=== PATIENT | female | born 2000 | race Caucasian/White ===

== ENCOUNTER 2025-05-29 15:20 | Emergency (ER) | payer MEDICAID ==
[~2025-05-29] VITALS: Ht 157.5 cm; Wt 56.0 kg
[2025-05-29 15:38] VITALS: TEMP 97.8
[2025-05-29 17:46] VITALS: BP 90/42; PULSE 64; RESP 16; O2SAT 100
--- NOTE | 2025-05-29 18:06 | Physician Documentation ---
History of Present Illness ~ Chief Complaint: Neck pain Stated Complaint: WEAKNESS AND DIZZINESS Time Seen by MD: 15:59 Mode of Arrival: POV, Ambulatory HPI Patient is seen today with complaints of chronic neck pain stating she has a Chiari malformations diagnosed by her primary care and states she is trying to get into see a neurologist. She states her primary care did put in a referral to see a neurologist. Patient also states that she has some vague chronic lower abdominal pain that is been present for over a month and she states she was told at one point she had an ectopic . Patient admits to morning sickness. She has no other concern or complaint at this time. Denies any fevers or chills or chest pain or vomiting or diarrhea. Medication Reconciliation Allergies: Coded Allergies: fentanyl (Verified Adverse Reaction, Intermediate, NUMBNESS, 05/29/25) Review of Systems Constitutional: Denies: chills, fever, weakness Eyes: Denies: pain, blurred vision ENT: Denies: ear pain, nose pain, throat pain, mouth pain Respiratory: Denies: cough, shortness of breath Cardiovascular: Denies: chest pain, palpitations Gastrointestinal: Denies: abdominal pain, nausea, vomiting Genitourinary: Denies: burning, dysuria Female Genitalia: Denies: vaginal discharge, pelvic pain Neurological: Denies: headache, dizziness Musculoskeletal: Denies: pain, swelling Integumentary: Denies: rash, lesions Allergic/Immunologic: Denies: hives, itching Hematologic/Lymphatic: Denies: no symptoms reported Psychiatric: Denies: depression, anxiety Physical Exam Vital Signs: Temperature: 97.8, Source: Temporal, Heart Rate: 64, Respiratory Rate: 16, BP: 90/42, Pulse Oximetry: 100, Weight: 56.000 Oxygen Flow Rate: 0 Physical Exam General: Awake and Alert, no acute distress. HEENT: Conjunctiva pink, Sclera clear, Mucus Membranes moist. Neck: Supple without masses and tenderness. Resp: Unlabored. Lungs clear to auscultation bilaterally. Heart: Regular Rate and rhythm, normal S1 and S2 without murmur, rub or gallop. Musculoskeletal: Patient has decreased range of motion of the cervical spine in all planes of motion. Patient is neurovascularly intact of the bilateral upper and lower extremities, motor function and strength intact distally. Abdomen: Abdomen is soft, nondistended, no masses, no guarding, no rebound tenderness, very minimal lower abdominal tenderness to palpation. Extremities: No cyanosis,clubbing or edema. Skin: Warm and Dry. Progress Results/Orders Results/Orders Completed Orders - CAMILO CIFUENTES Hcg Serum Qt (05/29/25 16:42) Vital Signs 05/29/25 05/29/25 05/29/25 15:38 16:47 17:46 Temp 97.8 Pulse 69 64 Resp 16 16 16 B/P (MAP) 99/28 90/42 (58) Pulse Ox 100 100 O2 Flow Rate 0 0 Laboratory Tests Test 05/29/25 17:00 HCG Beta Subunit < 1.0 Medical Decision Making Findings Patient is seen today with complaints of chronic neck pain stating she has a Chiari malformations diagnosed by her primary care and states she is trying to get into see a neurologist. She states her primary care did put in a referral to see a neurologist. Patient also states that she has some vague chronic lower abdominal pain that is been present for over a month and she states she was told at one point she had an ectopic . Patient admits to morning sickness. She has no other concern or complaint at this time. Denies any fevers or chills or chest pain or vomiting or diarrhea. Patient did have serum hCG quantitative that was completely negative. Patient will follow up with primary care for referral to Neurology for treatment of neck pain/Chiari for malformations. Patient will return to ED with any worsening, concerning or changing symptoms. Patient will continue Tylenol and ibuprofen as needed for symptomatic pain relief. Departure Disposition: 01 HOME / SELF CARE / HOMELESS Impression: Primary Impression: Neck pain Additional Impression: Nausea Condition: Improved Discharge Instructions: Nausea, Adult, [id number] Additional Instructions: Patient did have serum hCG quantitative that was completely negative. Patient will follow up with primary care for referral to Neurology for treatment of neck pain/Chiari for malformations. Patient will return to ED with any worsening, concerning or changing symptoms. Patient will continue Tylenol and ibuprofen as needed for symptomatic pain relief. Referrals: NO PRIMARY CARE PROVIDER (PCP) Prescriptions ONDANSETRON ODT 4mg tablet (ONDANSETRON ODT) 4 Mg Tab.rapdis 4 MG PO BID for 7 Days, #14 TAB Prov: CAMILO CIFUENTES 05/29/25 Signature Scribe Signature: No scribe Attestation: No peribCAMILO Briscoe PAC May 29, 2025 18:06
[2025-05-29] MEDS ORDERED: ONDA-243 PO (18:12)
== END 2025-05-29 18:17 | disposition home or self-care (01) ==
LOC: ER 15:21
DX: G89.29 Other chronic pain (principal); M54.2 Cervicalgia; R11.0 Nausea; R10.30 Lower abdominal pain, unspecified; Z88.5 Allergy status to narcotic agent
CPT/HCPCS: 36415; 84702; 99283

== ENCOUNTER 2025-06-11 16:05 | Inpatient (IN) | payer MEDICAID ==
[~2025-06-11] VITALS: Ht 157.5 cm; Wt 54.6 kg
[~2025-06-11 16:05] MED LIST: ONDA-243 PO
[2025-06-11 18:15] LABS: MEAN PLATELET VOLUME 6.6 FL (7.4-10.4); RED CELL DISTRIBUTION WIDTH 13.9 % (11.5-14.5)
--- NOTE | 2025-06-11 18:21 | Physician Documentation ---
History of Present Illness Chief Complaint: Abdominal Pain w/vomiting Stated Complaint: ABDOMINAL PAIN Time Seen by MD: 18:04 HPI 25-year-old female presenting with abdominal pain that started approximately 4 hours ago. Patient states that it is in her lower abdomen and radiates upwards. She has also had nausea with two episodes of nonbloody emesis. Pain is severe, 10/10 and there is no relation to anything that she does. She also states that she feels clammy and that her hands feel numb and tingly. No reports of any chest pain, fever, chills or any other associated symptoms. Medication Reconciliation Allergies: Coded Allergies: fentanyl (Verified Adverse Reaction, Intermediate, NUMBNESS, 06/11/25) Scheduled Fluoxetine Hcl (Fluoxetine Hcl), 1 TAB PO DAILY, (Reported) Hydroxyzine HCl (Hydroxyzine HCl), 1 TAB PO BID, (Reported) Pantoprazole Sodium (Pantoprazole Sodium), 40 MG PO BKF Quetiapine Fumarate (Seroquel), 1 TAB PO HS, (Reported) Trazodone HCl (Trazodone HCl), 1 TAB PO HS, (Reported) Scheduled PRN ONDANSETRON ODT 4mg tablet (Ondansetron Odt), 4 MG PO Q6H PRN for nausea/vomiting Review of Systems All Other Systems at this time: Reviewed and Negative Physical Exam Vital Signs: Temperature: 97.0, Source: Temporal, Heart Rate: 80, Respiratory Rate: 16, BP: 94/61, Pulse Oximetry: 100, Weight: 54.650 Oxygen Flow Rate: 0 Physical Exam I have reviewed the triage vitals. CONST: Well developed and well nourished. In mild distress HENT: Head Atraumatic EYES: Pupils are equal, round and reactive to light. Normal conjunctiva NECK: Normal range of motion. Supple. CARDIO: Normal rate and regular rhythm. No murmurs, rubs, or gallops. S1, S2. PULM/CHEST: No respiratory distress. Lungs clear to auscultation. No wheeze ABD: Soft, tenderness to palpation over the left lower quadrant and periumbilical area. Nondistended. Bowel sounds normal. No guarding. : Exam deferred MSK: No edema. No deformity. NEURO: Alert and oriented to person, place and time. Moving all extremities SKIN: Warm and dry. PSYCH: Normal mood and affect. Good eye contact. Progress Results/Orders Results/Orders Orders - SHIREEN LYLES MD Culture Blood (06/11/25 18:16) Lacticsepsis (06/11/25 18:16) Normal Saline 1000ml (0.9% Sodium Chlori (06/11/25 18:20) Morphine 4mg/Ml Inj. (Morphine Inj.) (06/11/25 18:20) Ondansetron Inj. (Zofran 4mg/2ml Vial) (06/11/25 18:20) Ct Abdomen Pelvis (06/11/25 18:16) Vital Signs 06/11/25 16:52 Temp 97.0 Pulse 80 Resp 16 B/P (MAP) 94/61 Pulse Ox 100 O2 Flow Rate 0 Laboratory Tests Test 06/11/25 17:59 White Blood Count 8.4 Red Blood Count 3.88 L Hemoglobin 12.0 Hematocrit 34.9 L Mean Corpuscular Volume 89.8 Mean Corpuscular Hemoglobin 30.8 Mean Corpuscular Hemoglobin Concent 34.3 Red Cell Distribution Width 13.9 Platelet Count 368 Mean Platelet Volume 6.6 L Neutrophils (%) (Auto) 47.9 Lymphocytes (%) (Auto) 43.3 Monocytes (%) (Auto) 4.0 Eosinophils (%) (Auto) 4.1 Basophils (%) (Auto) 0.7 Neutrophils # (Auto) 4.0 Lymphocytes # (Auto) 3.6 Monocytes # (Auto) 0.3 Eosinophils # (Auto) 0.3 Basophils # (Auto) 0.1 CBC Comment Chemistry Comments EKG/XRAY/CT/US/VASC/MRI CT : Impression Exam: CT CT ABDOMEN PELVIS W/ IV CONTRAST History: abdominal pain- RLQ pain- assess for appy Comparison Study: US ULTRASOUND OF ABDOMEN on DOS: 06/11/25 TECHNIQUE: Multidetector CT of the abdomen and pelvis with IV contrast. Axial, coronal and sagittal multiplanar reformats were obtained from the axial data set by the technologist. Radiation Dose Information: CT Dose: CTDI volume is 7.49 mGy. Dose-length product is 361.38 mGy*cm FINDINGS: Bibasilar atelectasis. Partially visualized heart is unremarkable. Hepatomegaly with hepatic steatosis and mild intrahepatic biliary ductal dilatation. Spleen, gallbladder, pancreas and adrenal glands unremarkable. Kidneys, ureters and urinary bladder are unremarkable. Uterus and adnexa are unremarkable. Mild gastric wall thickening. Small bowel loops are unremarkable. Appendix is unremarkable. Small amount of fecal material within the descending colon and sigmoid. Moderate to large amount of fecal material within the remainder of the colon. No evidence of intraperitoneal free air or free fluid. No evidence of aortic aneurysm or dissection. No significant lymphadenopathy. Small fat containing umbilical hernia. Minimal body wall edema. No evidence of acute osseous abnormalities. IMPRESSION: Appendix is unremarkable. Mild gastritis. Hepatomegaly with hepatic steatosis. Small amount of fecal material within the descending colon and sigmoid. Moderate to large amount of fecal material within the remainder of the colon. Ultrasound : Impression ULTRASOUND OF THE APPENDIX CLINICAL HISTORY: R/O APPENDICITIS COMPARISON: None TECHNIQUE: Grayscale and color flow imaging of the right lower quadrant is performed. Findings and impression: The appendix is not clearly identified. Appendicitis can not be reliably excluded. No sizable fluid collections in the imaged right lower quadrant. If there is persistent clinical concern, CT may be considered to further evaluate. Medical Decision Making Additional Comments 25 yo F presenting with abdominal pain, nausea and vomiting. Lbas and imaging unremarkable. Vomiting wasn't able to be improved despite 2 rounds of 4 mg IV zofran. Pt also given IV fluids and IV morphine for pain. Still was unable to tolerate PO fluids. She is at risk of dehydration and would benefit from admission for IV fluids, further antiemetics and pain control. She will be admitted. Departure Disposition: ADMITTED INPATIENT Admission Level of Care: Med/Surg Impression: Primary Impression: Acute gastroenteritis Additional Impression: Vomiting Referrals: NO PRIMARY CARE PROVIDER (PCP) Prescriptions Pantoprazole Sodium (Pantoprazole Sodium) 40 Mg Tablet. 40 MG PO BKF, #30 TAB.SR Prov: JESSICA MCCURDY DO 06/16/25 ONDANSETRON ODT 4mg tablet (ONDANSETRON ODT) 4 Mg Tab.rapdis 4 MG PO Q6H PRN for nausea/vomiting, #24 TAB Prov: JESSICA MCCURDY DO 06/16/25 Signature Scribe Signature: 1 Attestation: 1 SHIREEN LYLES MD Jun 11, 2025 18:21
[2025-06-11] MEDS ORDERED: iohexol 300mg/ml 100ml inj. ONE (18:25)
--- NOTE | 2025-06-11 18:38 | RADIOLOGY REPORT ---
ULTRASOUND OF THE APPENDIX CLINICAL HISTORY: R/O APPENDICITIS COMPARISON: None TECHNIQUE: Grayscale and color flow imaging of the right lower quadrant is performed. Findings and impression: The appendix is not clearly identified. Appendicitis can not be reliably excluded. No sizable fluid collections in the imaged right lower quadrant. If there is persistent clinical concern, CT may be considered to further evaluate.
[2025-06-11 18:46] LABS: CREATININE 0.81 MG/DL (0.40-0.90); TOTAL CARBON DIOXIDE 25.1 MMOL/L (24-32); eCRCL 83 ML/MIN; eGFR 85 ML/MIN
[2025-06-11] MEDS: normal saline 1000ml 1,000 ML IV ONE ×2 (19:15→22:50)
[2025-06-11] MEDS: morphine 4 MG/ML inj SYRINge IV ONE ×3 (19:16→22:51)
[2025-06-11] MEDS: ondansetron/PF 4mg/2ml inj IV ONE ×2 (19:16→22:51)
[2025-06-11 20:04] LABS: HCG SERUM QL NEGATIVE
--- NOTE | 2025-06-11 20:47 | RADIOLOGY REPORT ---
Exam: CT CT ABDOMEN PELVIS W/ IV CONTRAST History: abdominal pain- RLQ pain- assess for appy Comparison Study: US ULTRASOUND OF ABDOMEN on DOS: 06/11/25 TECHNIQUE: Multidetector CT of the abdomen and pelvis with IV contrast. Axial, coronal and sagittal m ultiplanar reformats were obtained from the axial data set by the technologist. Radiation Dose Information: CT Dose: CTDI volume is 7.49 mGy. Dose-length product is 361.38 mGy*cm FINDINGS: Bibasilar atelectasis. Partially visualized heart is unremarkable. Hepatomegaly with hepatic steatosis and mild intrahepatic biliary ductal dilatation. Spleen, gallblad maria r, pancreas and adrenal glands unremarkable. Kidneys, ureters and urinary bladder are unremarkable. Uterus and adnexa are unremarkable. Mild gastr ic wall thickening. Small bowel loops are unremarkable. Appendix is unremarkable. Small amount of fec al material within the descending colon and sigmoid. Moderate to large amount of fecal material withi n the remainder of the colon. No evidence of intraperitoneal free air or free fluid. No evidence of aortic aneurysm or dissection. No significant lymphadenopathy. Small fat containing umbilical hernia. Minimal body wall edema. No evidence of acute osseous abnormal ities. IMPRESSION: Appendix is unremarkable. Mild gastritis. Hepatomegaly with hepatic steatosis. Small amount of fecal material within the descending colon and sigmoid. Moderate to large amount of f ecal material within the remainder of the colon.
[2025-06-11] MEDS: metoclopramide 5 mg/ml inj IV ONE (22:50)
[2025-06-11] MEDS ORDERED: TRAZ-251 PO (23:09)
[2025-06-11] MEDS ORDERED: QUET-1 PO (23:09)
[2025-06-11] MEDS ORDERED: potassium Cl 20 mEq SR tablet PO PRN (23:35)
[2025-06-11] MEDS ORDERED: magnesium sulf-water 4G/100mL 100 ML IV PRN (23:35)
[2025-06-11] MEDS ORDERED: magnesium sulf-water 2g/50mL 50 ML IV PRN (23:35)
[2025-06-11] MEDS ORDERED: bisacodyl 10mg suppository rectal RC PRN (23:35)
[2025-06-11] MEDS ORDERED: magnesium Cl slow-release 64mg tablet PO PRN (23:35)
[2025-06-11] MEDS ORDERED: ondansetron 4mg rapidly disintigrating tab PO PRN (23:35)
[2025-06-11] MEDS ORDERED: potassium Cl 40MEQ/1/2NS 520ml 520 ML IV PRN (23:35)
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
[2025-06-12] VITALS (10 sets, daily range): BP systolic 79–115; BP diastolic 41–70; PULSE 44–82; RESP 14–18; TEMP 97.6–98.2; O2SAT 96–100
[2025-06-12] MEDS: normal saline 1000ml 1,000 ML IV SCH (00:05)
[2025-06-12] MEDS ORDERED: FLUO-103 PO (00:07)
[2025-06-12] MEDS ORDERED: HYDR50TA65 PO (00:07)
[2025-06-12] MEDS: normal saline 500ml IV soln 500 ML IV ONE ×2 (05:07→05:32)
--- NOTE | 2025-06-12 05:25 | ELECTROCARDIOGRAPH REPORT ---
[facility] Test Date: 2025-06-12 Test Time: 04:53:34 Pat Name: MAI MOISE Department: Room: ORTHO 4009 Gender: F Medical Billing Specialist: ERICK : 2000 Requested By: EMMA VAUGHAN Order Number: [id number] Reading MD: Dr. ALTHEA Kingston Measurements Intervals [place] Rate: 43 P: 70 [place]: 128 QRS: 92 QRSD: 80 T: 83 QT: 556 QTc: 469 Interpretive Statements Marked sinus bradycardia Nonspecific T wave abnormality Prolonged QT Electronically Signed On 06-13-2025 15:38:[address] ALTHEA Kingston Please click the below link to view image of tracing.
[2025-06-12 05:27] LABS: MEAN PLATELET VOLUME 6.6 FL (7.4-10.4); RED CELL DISTRIBUTION WIDTH 13.5 % (11.5-14.5)
[2025-06-12 05:29] LABS: CREATININE 0.63 MG/DL (0.40-0.90); TOTAL CARBON DIOXIDE 24.9 MMOL/L (24-32); eCRCL 106 ML/MIN; eGFR > 90 ML/MIN
[2025-06-12] MEDS: K and/or MAG REPLACEMENT MC SCH (08:00)
[2025-06-12 08:02] LABS: EOSINOPHILS % (MANUAL) 4.0 % (0-6); LYMPHOCYTES % (MANUAL) 65.0 % (21-51); MONOCYTES % (MANUAL) 5.0 % (2-12); NEUTROPHILS % (MANUAL) 25.0 % (42-75); REACTIVE LYMPHOCYTES % 1.0 % (0-0)
[2025-06-12 08:04] LABS: PLATELET ESTIMATE NORMAL
[2025-06-12] MEDS: docusate sod 100mg capsule PO SCH (09:01)
[2025-06-12] MEDS: heparin, porcine 5000 units/ml vial SQ SCH (09:01)
[2025-06-12] MEDS: potassium Cl 20 mEq SR tablet PO PRN (09:01)
[2025-06-12] MEDS: magnesium hydroxide 30ml (MOM) UD suspension PO PRN (09:17)
[2025-06-12] MEDS ORDERED: ONDA-243 PO (11:33)
[2025-06-12] MEDS ORDERED: HYDROcodone/acetaminophen 5mg/325mg tablet PO PRN (14:55)
[2025-06-12] MEDS: HYDROcodone/acetaminophen 10/325mg tab PO PRN (15:15)
[2025-06-12 17:12] LABS: LEUKOCYTE ESTERASE ,URINE NEGATIVE (Neg); NITRITES, URINE NEGATIVE (Neg); OCCULT BLOOD,URINE NEGATIVE (Neg)
[2025-06-12 17:15] LABS: UA COLLECTION TYPE NON-SPECIFIED
[2025-06-12] MEDS: ondansetron/PF 4mg/2ml inj IV PRN (19:42)
--- NOTE | 2025-06-12 21:47 | PROGRESS NOTE ---
Daily Progress Note Providers to CC ~ Antibiotic Timeout Antibiotic Ordered?: No Subjective The patient has nausea has improved in his has not had any episodes of emesis s betty admission the patient is abdomen is soft however she appears moderately tender on exam Objective Vital Signs Date Time Temp Pulse Resp B/P (MAP) Pulse Ox O2 Delivery O2 Flow Rate FiO2 06/12/25 19:37 18 06/12/25 11:32 Room Air 06/12/25 10:00 97.6 78 102/58 (73) 100 06/12/25 01:23 0 Result Diagram: 06/12/2542206/12/25422 Gen. No acute distress alert and oriented 4 Lungs clear to ascultation bilaterally, no wheezes rales or rhonchi appreciated Heart normal sinus rhythm no murmurs rubs or clicks noted Abdomen soft moderate generalized tenderness r bowel sounds are normoactive Lower extremities no clubbing cyanosis, nor edema appreciated bilaterally Problem\Assessment\Plan Acute on chronic abdominal pain -chronic abdominal pain in for many years aggravated for the past few months and worsened today -ct abdomen ruled out cholecystitis and pancreatitis lipase is normal, hCG is negative -differentials includes abdominal pain secondary to constipation versus gastroparesis versus IBS C -as per patient, she is having family history of drug addiction and does not want any opioids -continue pain management with Tylenol, p.r.n. 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 -patient smoke one bowl of cannabis a day -counseled the patient regarding the side effects of the cannabis and recommended to stop -for now started on IV Zofran and IV metoclopramide Chronic constipation -could be secondary to IBS C -follow up on TSH -Dulcolax suppository, Colace and milk of Mag for constipation -if needed start on MiraLax Anxiety/depression -continue trazodone, Seroquel, hydroxyzine, and Prozac Chiari Type 1 malformation No signs of acute headaches or neurological sequelae Sickle-cell trait -H&H- -follow up on peripheral smear Hypokalemia On potassium replacement protocol Anemia- Continue monitor and watch for any signs of sickle cell flare-up Transfuse if hemoglobin drops below seven Date of Service: Jun 12, 2025 Billing Provider: JESSICA MCCURDY DO Common Visit Codes: [id number] INP/OBS CARE(HIGH) JESSICA MCCURDY DO Jun 12, 2025 21:47
[2025-06-13] VITALS (9 sets, daily range): BP systolic 84–120; BP diastolic 40–74; PULSE 39–50; RESP 12–16; TEMP 98.1–99.4; O2SAT 98–100
[2025-06-13 05:42] LABS: MEAN PLATELET VOLUME 6.6 FL (7.4-10.4); RED CELL DISTRIBUTION WIDTH 13.4 % (11.5-14.5)
[2025-06-13 05:58] LABS: CREATININE 0.57 MG/DL (0.40-0.90); TOTAL CARBON DIOXIDE 19.6 MMOL/L (24-32); eCRCL 117 ML/MIN; eGFR > 90 ML/MIN
[2025-06-13] MEDS: mag hydrox/Alum hydrox/simeth 30ml oral suspension PO PRN (07:17)
[2025-06-13] MEDS: normal saline 1000ml 1,000 ML IVB ONE (10:26)
--- NOTE | 2025-06-13 10:31 | PROGRESS NOTE ---
Daily Progress Note Providers to CC ~ Antibiotic Timeout Antibiotic Ordered?: No Subjective I was alerted that the patient had a blood pressure of patient 80 over 40s-the patient also is mildly symptomatic and feels dizzy she does state her blood pressure runs low L normal saline is ordered has a bolus and the patient also was has a metabolic acidosis and a bicarb drip was started. The patient continues to have significant epigastric abdominal tenderness and add lipase is ordered along with a overnight oral contrast prep CT scan of the abdomen and pelvis and a KUB. Objective Vital Signs Date Time Temp Pulse Resp B/P (MAP) Pulse Ox O2 Delivery O2 Flow Rate FiO2 06/13/25 08:00 16 100 Room Air 0.0 06/12/25 22:00 98.2 44 115/54 (74) Result Diagram: 06/13/25 0512 06/13/25 0512 Gen. No acute distress mildly somnolent and oriented 4 Lungs clear to ascultation bilaterally, no wheezes rales or rhonchi appreciated Heart normal sinus rhythm no murmurs rubs or clicks noted Abdomen soft significant epigastric tenderness bowel sounds are normoactive Lower extremities no clubbing cyanosis, nor edema appreciated bilaterally Problem\Assessment\Plan Acute on chronic abdominal pain -chronic abdominal pain in for many years aggravated for the past few months and worsened today -ct abdomen ruled out cholecystitis and pancreatitis lipase is normal, hCG is negative -differentials includes abdominal pain secondary to constipation versus gastroparesis versus IBS C -as per patient, she is having family history of drug addiction and does not want any opioids -continue pain management with Tylenol, p.r.n. dicyclomine -she needs dedicated evaluation with GI to rule out gastroparesis/IBS C in the outpatient setting -IV fluids NS at 100 cc/hour -06/13 epigastric tenderness has significantly increased today- a KUB is ordered for evaluation of stool burden and a overnight oral contrast prep CT scan is ordered Chronic vomitings Likely secondary to cannabis hyperemesis -patient smoke one bowl of cannabis a day -counseled the patient regarding the side effects of the cannabis and recommended to stop -for now started on IV Zofran and IV metoclopramide Chronic constipation -could be secondary to IBS C -follow up on TSH -Dulcolax suppository, Colace and milk of Mag for constipation -if needed start on MiraLax - KUB Anxiety/depression -continue trazodone, Seroquel, hydroxyzine, and Prozac Chiari Type 1 malformation No signs of acute headaches or neurological sequelae Sickle-cell trait -H&H- -follow up on peripheral smear Hypokalemia On potassium replacement protocol Anemia- Continue monitor and watch for any signs of sickle cell flare-up Transfuse if hemoglobin drops below seven Metabolic acidosis- Bicarb drip Date of Service: Jun 13, 2025 Billing Provider: JESSICA MCCURDY DO Common Visit Codes: [id number] CARE 30-74 MIN JESSICA MCCURDY DO Jun 13, 2025 10:31
--- NOTE | 2025-06-13 12:29 | RADIOLOGY REPORT ---
CLINICAL HISTORY: Rule out bowel obstruction. TECHNIQUE: Single AP portable supine abdominal radiograph was obtained. COMPARISON: CT CT ABDOMEN PELVIS W/ IV CONTRAST on DOS: 06/11/25, US ULTRASOUND OF ABDOMEN on DOS: FINDINGS: Nonspecific bowel gas pattern with mildly distended gas-filled small bowel loops and gas v isualized within the colon. Relative paucity of bowel gas in the right hemiabdomen due to hepatomegal y. IMPRESSION: Nonspecific nonobstructive bowel gas pattern, may be due to an ileus in the appropriate clinical sett ing. Correlate with clinical findings.
[2025-06-13] MEDS: sodium bicarbonate (8.4%) inj. 100 MEQ in dextrose 5%-water 1,000 ML IV SCH (13:00)
--- NOTE | 2025-06-13 14:24 | ELECTROCARDIOGRAPH REPORT ---
[facility] Test Date: 2025-06-13 Test Time: 14:22:59 Pat Name: MAI MOISE Department: [facility] Room: [place] [address] Gender: F Airplane Inspector: checo : 2000 Requested By: JESSICA MCCURDY Order Number: [id number] Reading MD: Dr. ALTHEA Kingston Measurements Intervals [place] Rate: 48 P: -65 OR: 104 QRS: 84 QRSD: 91 T: 60 QT: 522 QTc: 467 Interpretive Statements Sinus or ectopic atrial bradycardia Short OR interval Electronically Signed On 06-13-2025 15:39:[address] ALTHEA Kingston Please click the below link to view image of tracing.
[2025-06-13] MEDS: metoclopramide 5 mg/ml inj IV PRN (21:16)
[2025-06-13] MEDS: diatr meglu/diatrizoate 30ml oral sol.-(3 dose) bottle PO SCH (21:21)
[2025-06-14 05:26] LABS: MEAN PLATELET VOLUME 6.4 FL (7.4-10.4); RED CELL DISTRIBUTION WIDTH 13.6 % (11.5-14.5)
[2025-06-14 05:47] LABS: CREATININE 0.57 MG/DL (0.40-0.90); TOTAL CARBON DIOXIDE 24.6 MMOL/L (24-32); eCRCL 117 ML/MIN; eGFR > 90 ML/MIN
[2025-06-14 06:00] VITALS: BP 112/73; PULSE 64; RESP 15; TEMP 99.9; O2SAT 98
[2025-06-14] MEDS: morphine 4 MG/ML inj SYRINge IV PRN (07:12)
--- NOTE | 2025-06-14 10:28 | RADIOLOGY REPORT ---
CLINICAL INDICATION: acute lower extremity neuropathy. Numbness in the bilateral lower extremities fo r 2-3 weeks. History of Chiari malformation. COMPARISON: None TECHNIQUE: Multisequence multiplanar MRI images of the brain were obtained without contrast. FINDINGS: Nondiagnostic examination for evaluation of acute infarct due to prominent artifact from t he patient's braces limiting evaluation, most significantly affecting the diffusion-weighted images a nd T2 star images. No mass or midline shift. Ventricles and sulci are within normal limits. Basal ci sterns are patent. The cerebellar tonsils extend up to 5 mm below the level of the foramen magnum con sistent with reported history of chiari malformation. Mild mucosal thickening of the paranasal sinuse s. Orbits are grossly unremarkable. IMPRESSION: 1. Limited examination due to artifact from the patient's braces, making the diffusion-weighted image s nondiagnostic and affecting other sequences to a lesser extent near the skull base. 2. Chiari malformation. 3. No other abnormality identified given the limitations of the examination.
--- NOTE | 2025-06-14 10:33 | RADIOLOGY REPORT ---
CLINICAL INFORMATION: 25 years old, Female; acute lower extremity neuropathy. TECHNIQUE: Multisequence multiplanar MRI images of the cervical spine were obtained without contrast . COMPARISON: None FINDINGS: Bones: Vertebral body alignment is within normal limits. Vertebral body heights are maintained. Poste rior elements are intact. No acute fracture. No focal suspicious marrow signal abnormality. Spinal cord: Spinal cord is normal in signal intensity and morphology. No syrinx. Paraspinal soft tissues: Paraspinal and prevertebral soft tissues are unremarkable. Other: Cerebellar tonsils extend up to 5 mm below the level of the foramen magnum, consistent with re ported history of Chiari malformation. Artifact limits evaluation on some sequences, including the ax ial T2 fat-sat and axial 3D cosmic sequences. Cervical disc levels: C2-C3: No significant disc/facet abnormality. No significant spinal canal or neural foraminal stenosi s. C3-C4: No significant disc/facet abnormality. No significant spinal canal or neural foraminal stenosi s. C4-C5: No significant disc/facet abnormality. No significant spinal canal or neural foraminal stenosi s. C5-C6: Minimal disc bulge. No significant spinal canal or neural foraminal stenosis. C6-C7: No significant disc/facet abnormality. No significant spinal canal or neural foraminal stenosi s. C7-T1: No significant disc/facet abnormality. No significant spinal canal or neural foraminal stenos is. IMPRESSION: 1. The cerebellar tonsils extend up to 5 mm below the level of the foramen magnum, consistent with re ported history of Chiari malformation. No associated syrinx. 2. Minimal disc bulge at C5-C6. No significant spinal canal or neural foraminal stenosis in the cervi roxana spine. 3. Artifact from the patient's braces limits evaluation.
--- NOTE | 2025-06-14 11:03 | RADIOLOGY REPORT ---
CLINICAL INFORMATION: 25 years old, Female; acute lower extremity neuropathy. TECHNIQUE: Multisequence multiplanar MRI images of the lumbar spine were obtained without contrast. COMPARISON: None INTERPRETATION: Vertebral body alignment is within normal limits. Vertebral body heights are mainta ined. Posterior elements are intact. No focal suspicious marrow signal abnormality. Visualized sp inal cord and cauda equina are within normal limits. The conus medullaris is appropriate in signal a t the L1 level. Paraspinal soft tissues are unremarkable. Mild to moderate subcutaneous edema visual ized posteriorly. L1-L2: No significant disc/facet abnormality. No significant spinal canal or neural foraminal stenos is. L2-L3: No significant disc/facet abnormality. No significant spinal canal or neural foraminal stenos is. L3-L4: No significant disc/facet abnormality. No significant spinal canal or neural foraminal stenos is. L4-L5: No significant disc/facet abnormality. No significant spinal canal or neural foraminal stenos is. L5-S1: Disc desiccation with mild disc space narrowing. Right paracentral disc protrusion mildly ind enting the ventral aspect of the thecal sac. No significant spinal canal stenosis. Facet hypertrophy with mild bilateral neural foraminal stenoses. IMPRESSION: 1. Degenerative disc disease at L5-S1 without significant spinal canal stenosis. 2. Facet hypertrophy at L5-S1 with mild bilateral neural foraminal stenoses.
--- NOTE | 2025-06-14 11:37 | RADIOLOGY REPORT ---
CLINICAL HISTORY: 25 years old, Female; acute lower extremity neuropathy. TECHNIQUE: Multi sequence multi planar MRI images of the thoracic spine were obtained without IV con trast. COMPARISON: None FINDINGS: Vertebral body alignment is within normal limits. Vertebral body heights are maintained. Posterior elements are intact. No evidence of acute fracture. No focal marrow signal abnormality in the thoracic spine. There is disc desiccation at the T7-T8 level. No significant disc bulge or spin al canal stenosis. No significant neural foraminal stenosis in the thoracic spine. Spinal cord is nor mal in signal intensity and morphology. Paraspinal soft tissues are unremarkable. There are bilateral pleural effusions, right greater than left, partially visualized. Moderate subcutaneous edema also n oted. IMPRESSION: 1. Disc desiccation at T7-T8 without significant disc bulge or spinal canal stenosis or neural forami nal stenosis in the thoracic spine. 2. Spinal cord is normal in signal intensity and morphology. 3. Partially visualized bilateral pleural effusions, right greater than left. Nonspecific subcutaneou s edema.
[2025-06-14] MEDS: pantoprazole 40mg IV 80 MG in normal saline 100ml IV soln 100 ML IV ONE (11:55)
[2025-06-14 12:00] VITALS: BP_SYST 109; BP_SYST 113; BP_SYST 122; BP_DIAS 67; BP_DIAS 70; BP_DIAS 76; PULSE 50; PULSE 52; PULSE 53
--- NOTE | 2025-06-14 13:42 | [facility] CONSULT REPORT ---
[facility] Procedure Note [facility] Procedure Note Consult [facility] Note # Demographics Consult Type: General Neurology Patient Location: Inpatient First Name: Keturah Last Name: Sudhir Date of : 2000 Age: 25 Gender: Female Facility: [facility] Time of Initial Page (): 06/14/2025 12:52 First Contact with Site (): 06/14/2025 12:52 Phone Agreement: - phone consult deemed mutually sufficient for patient care # HPI History: 25F with Chiari 1 malformation, sickle cell traitadmitted with hyperemesis, now complaining of sensation of swollen hands, left arm and bilateral lower extremity numbness/tingling up to the knees. Has history of Chiari malformation, unclear if that has been worked up in the past. Burning pain/stabbing feeling in the abdomen. Has constipation. Vomiting has been ongoing for months. Neurologic symptoms are not new. MRI brain and total spine showed known Chiari 1 malformation; no syrinx. 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 I performed this phone consultation from my offsite office Total time spent in telemedicine encounter: I spent 10 minutes in reviewing clinical data and/or imaging, obtaining history, communicating with the onsite care team, and in preparation of this report. Electronically signed at 06/14/2025 13:41 () by Mark Jefferson MD Neuro Consult Order placed for: Yes MARK JEFFERSON MD Jun 14, 2025 13:42
--- NOTE | 2025-06-14 14:26 | RADIOLOGY REPORT ---
CLINICAL INFORMATION: 25 years old, Female; severe epigastric pain. TECHNIQUE: Axial CT images of the abdomen and pelvis were obtained without IV contrast. Coronal and s agittal reformatted images were obtained, reviewed, and stored. Evaluation of the parenchymal organs is limited without IV contrast. There is GI contrast visualized, mostly in the colon. All CT scans at this medical facility are performed using dose modulation techniques as appropriate to a performed e xam including the following: Automated exposure control was utilized; adjustment of the MA and/or KV according to patient size; and use of iterative reconstruction technique. CTDIvol = 8.61 mGy DLP = 452.65 mGy-cm COMPARISON: CT CT ABDOMEN PELVIS W/ IV CONTRAST on DOS: 06/11/25, US ULTRASOUND OF ABDOMEN on DOS: FINDINGS: Lung bases: Small right pleural effusion with overlying atelectasis and consolidation. Mild atelectas is and consolidation in the left lower lobe with trace left pleural effusion. Liver: Small to moderate about of perihepatic fluid, new compared to the prior exam. Biliary: There is free fluid adjacent to the gallbladder. Mildly distended gallbladder. No calcified gallstones visualized. Spleen: Small to moderate amount of free fluid adjacent to the spleen. Pancreas: Limited evaluation of the pancreas due to motion artifact and lack of intravenous contrast. Can not exclude acute pancreatitis. Adrenal glands: Unremarkable. No mass. Kidneys: No hydronephrosis. No renal or ureteral calculi. Aorta/Vascular: No aneurysm or significant calcification. Retroperitoneum: No mass or lymphadenopathy. Bowel/mesentery: There is a moderate amount of free fluid in the abdomen and pelvis, new compared to the prior exam, measures simple fluid attenuation. No free air. Appendix is visualized and appears u nremarkable, measuring up to 3 mm in diameter. There is GI contrast, mostly in the colon with small a mount of contrast in the distal ileum and in the appendix. Pelvic organs: Grossly unremarkable. Bladder: Unremarkable. No mass. Abdominal wall: Mild anasarca. Bones: No acute fracture or suspicious intraosseous lesion. IMPRESSION: 1. Moderate free fluid in the abdomen and pelvis, new compared to the prior exam, of uncertain etiolo gy. The density of the fluid is consistent with simple fluid. 2. Gallbladder appears mildly distended. No calcified gallstones visualized. If there is clinical con cern for acute cholecystitis, ultrasound could be considered. 3. Small right pleural effusion with overlying atelectasis and consolidation. Trace left pleural effu vivian with overlying mild atelectasis and consolidation. 4. Appendix is visualized, with contrast extending into the lumen of the appendix. The appendix is no rmal in diameter. No findings are seen to suggest acute appendicitis. Correlate with clinical findin gs. 5. Limited evaluation of the pancreas. Can not exclude acute pancreatitis in the appropriate clinica l setting. Correlate with clinical laboratory findings.
[2025-06-14] MEDS: pantoprazole 40MG/NS 100ML BAG 100 ML IV SCH (16:46)
[2025-06-14 18:00] VITALS: BP 113/87; PULSE 63; RESP 16; TEMP 98.2; O2SAT 99
--- NOTE | 2025-06-14 18:55 | CARDIOLOGY REPORT ---
APPROVED REPORT EXAM: Comprehensive 2D, Doppler, and color-flow Echocardiogram. Patient Location: [address] Heart Rate: 40's bpm Rhythm: SINUS BRADYCARDIA Indications ARRHYTHMIA Jet Wiper: NONE Previous echo: NONE 2D Dimensions RVDd 3.1 cm LA Diam3.8 cm IVSd 0.6 (0.7-1.1cm) LVDd 4.9 cm PWd 0.6 (0.7-1.1cm) IVSs 1.1 (0.8-1.2cm) LVDs 3.2 (2.5-4.0cm) PWs 1.1 (0.8-1.2cm) LVOT Diameter 1.98 (1.8-2.4cm) LVEF(%) 64.3 (>50%) IVC 23.82 mmFS (%) 35.1 % SV 74.2 ml CO 3.6 L/min M-Mode Dimensions Aortic Root 2.50 (2.2-3.7cm) Aortic Cusp Exc 1.95 (1.5-2.0cm) MV EPSS 0.2 (<0.5cm) Aortic Valve AoV Peak Presley. 131.0 cm/s AoV VTI 27.1 cm AO Peak GR. 6.9 mmHg AO Mean GR. 3 mmHg LVOT VTI 26.95 cm LVOT Peak Presley. 113.7 cm/s OMEGA(VTI)/BSA 3.05 cm2/m2 OMEGA (VTI) 3.05 cm2 Mitral Valve MV Peak Gr. 5 mmHg MV PHT 68 ms MVA (PHT) 3.24 cm2 MV [id number] cm/s LEFT VENTRICLE Normal LV size and wall thickness. Overall systolic function is normal. LVEF is 65-70%. RIGHT VENTRICLE RV is normal size and function. ATRIA The left atrium size is normal. AORTIC VALVE Trileaflet AV appears normal without stenosis. No insufficiency. MITRAL VALVE Mild MV annular calcification without stenosis. Trace regurgitation. TRICUSPID VALVE TV appears structurally normal with trace regurgitation. PULMONIC VALVE Normal PV without stenosis, physiologic insufficiency. GREAT VESSELS The aortic root is normal in size. IVC is dilated and collapses less than 50% with inspiration. PERICARDIUM Normal pericardium. No effusion. Other Information Study Quality: Adequate Conclusion Normal LV size and wall thickness. Overall systolic function is normal. LVEF is 65-70%. RV is normal size and function. The left atrium size is normal. Trileaflet AV appears normal without stenosis. No insufficiency. Mild MV annular calcification without stenosis. Trace regurgitation. TV appears structurally normal with trace regurgitation. Normal pericardium. No effusion.
[2025-06-14 20:00] VITALS: BP_SYST 116; BP_SYST 118; BP_SYST 129; BP_DIAS 67; BP_DIAS 68; PULSE 51; PULSE 52; PULSE 68
[2025-06-14 20:30] VITALS: RESP 16; O2SAT 99
--- NOTE | 2025-06-14 21:16 | PROGRESS NOTE ---
Daily Progress Note Providers to CC ~ Antibiotic Timeout Antibiotic Ordered?: No Subjective The patient had significant epigastric tenderness in his when I evaluated her today. A CT scan shows gastritis, I discussed the MRI findings with the tele neurology who recommends the patient follow up with neurosurgery however there was no indication for neurosurgery on the imaging studies Objective Vital Signs Date Time Temp Pulse Resp B/P (MAP) Pulse Ox O2 Delivery O2 Flow Rate FiO2 06/14/25 18:30 60 06/14/25 18:00 98.2 16 113/87 (96) 99 Room Air 06/14/25 07:00 0.0 21 Result Diagram: 06/14/25 0504 06/14/25 0504 Gen. No acute distress alert and oriented 4 Lungs clear to ascultation bilaterally, no wheezes rales or rhonchi appreciated Heart normal sinus rhythm no murmurs rubs or clicks noted Abdomen soft significant epigastric tenderness bowel sounds are normoactive Lower extremities no clubbing cyanosis, nor edema appreciated bilaterally Problem\Assessment\Plan Acute on chronic abdominal pain -chronic abdominal pain in for many years aggravated for the past few months and worsened today -ct abdomen ruled out cholecystitis and pancreatitis lipase is normal, hCG is negative -differentials includes abdominal pain secondary to constipation versus gastroparesis versus IBS C -as per patient, she is having family history of drug addiction and does not want any opioids -continue pain management with Tylenol, p.r.n. dicyclomine -she needs dedicated evaluation with GI to rule out gastroparesis/IBS C in the outpatient setting -IV fluids NS at 100 cc/hour -06/13 epigastric tenderness has significantly increased today- a KUB is ordered for evaluation of stool burden and a overnight oral contrast prep CT scan is ordered -06/14 the patient can not tolerate the oral contrast as she was vomiting thus plain CT scan was obtained which demonstrates distended gallbladder I have ordered a ultrasound of the gallbladder- started the patient on Protonix IV and the patient is scheduled for an EGD tomorrow with Dr. Landaverde. Chronic vomitings Likely secondary to cannabis hyperemesis -patient smoke one bowl of cannabis a day -counseled the patient regarding the side effects of the cannabis and recommended to stop -for now started on IV Zofran and IV metoclopramide Chronic constipation -could be secondary to IBS C -follow up on TSH -Dulcolax suppository, Colace and milk of Mag for constipation -if needed start on MiraLax - KUB Anxiety/depression -continue trazodone, Seroquel, hydroxyzine, and Prozac Chiari Type 1 malformation With bilateral upper and lower extremity numbness- MRI of the brain demonstrates the following Chiari more a formation of 5 mm below the foramen magnum MRI of the cervical spine has a following findings: 1. The cerebellar tonsils extend up to 5 mm below the level of the foramen magnum, consistent with reported history of Chiari malformation. No associated syrinx. 2. Minimal disc bulge at C5-C6. No significant spinal canal or neural foraminal stenosis in the cervical spine. MRI of the thoracic spine with the following findings 1. The cerebellar tonsils extend up to 5 mm below the level of the foramen magnum, consistent with reported history of Chiari malformation. No associated syrinx. 2. Minimal disc bulge at C5-C6. No significant spinal canal or neural foraminal stenosis in the cervical spine. MRI of the Lumbar Spine with the following findings: 1. Degenerative disc disease at L5-S1 without significant spinal canal stenosis. 2. Facet hypertrophy at L5-S1 with mild bilateral neural foraminal stenoses. Discussed these findings with tele neurology Dr. Mark Lopez who recommended neurosurgery follow up outpatient Discussed the findings with neurosurgeon and sent contact information to arrange outpatient follow up Sickle-cell trait -H&H- -follow up on peripheral smear Hypokalemia On potassium replacement protocol Anemia- Continue monitor and watch for any signs of sickle cell flare-up Transfuse if hemoglobin drops below seven Metabolic acidosis- Resolved Date of Service: Jun 14, 2025 Billing Provider: JESSICA MCCURDY DO Common Visit Codes: [id number] INP/OBS CARE(HIGH) JESSICA MCCURDY DO Jun 14, 2025 21:16
[2025-06-14 22:00] VITALS: BP 116/67; PULSE 52; RESP 16; TEMP 98.1; O2SAT 100
[2025-06-15] VITALS (17 sets, daily range): BP systolic 91–128; BP diastolic 43–74; PULSE 48–67; RESP 14–27; TEMP 98–98.5; O2SAT 96–100
[2025-06-15 06:27] LABS: MEAN PLATELET VOLUME 6.8 FL (7.4-10.4); RED CELL DISTRIBUTION WIDTH 13.2 % (11.5-14.5)
[2025-06-15 06:41] LABS: CREATININE 0.55 MG/DL (0.40-0.90); TOTAL CARBON DIOXIDE 22.1 MMOL/L (24-32); eCRCL 122 ML/MIN; eGFR > 90 ML/MIN
[2025-06-15] MEDS ORDERED: LIDOcaine 2% Viscous 15ml cup ONE (09:00)
[2025-06-15] MEDS ORDERED: propofol inj 20 ML IV ONE (09:17)
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
--- NOTE | 2025-06-15 10:56 | RADIOLOGY REPORT ---
INDICATION: Distended gallbladder seen on CT scan TECHNIQUE: Multiple real-time sonographic images of the abdomen were obtained. COMPARISON: CT CT ABDOMEN PELVIS W/ ORAL CONTRAST on DOS: 06/14/25, DI ABDOMEN,SINGLE VIEW(KUB) on DOS : 06/13/25, CT CT ABDOMEN PELVIS W/ IV CONTRAST on DOS: 06/11/25, US ULTRASOUND OF ABDOMEN on DOS: 06/11/25 FINDINGS: The liver is homogenous in echogenicity. The liver measures 17cm. No intrahepatic biliary ductal dilatation is noted. The gallbladder wall measures 0.1 cm and is unremarkable. No gallstones or sludge is seen. The commo n duct measures 0.1 cm and is unremarkable. No pericholecystic fluid is noted. The right kidney measures 11cm. No hydronephrosis. The pancreas is not well visualized due to obscuration from bowel gas. The visualized portions of the IVC and aorta are grossly unremarkable. IMPRESSION: Normal exam of the abdomen.
[2025-06-15] MEDS: bisacodyl 10mg suppository rectal RC STA (12:05)
[2025-06-15] MEDS: NUT.TX.IMPAIRED DIGEST FXN (Ensure Clear) 237 ML PO SCH (13:20)
--- NOTE | 2025-06-15 20:20 | PROGRESS NOTE ---
Daily Progress Note Providers to CC ~ Antibiotic Timeout Antibiotic Ordered?: No Subjective The patient is asking for advancement of her diet and and she was sitting up in bed and looks much more comfortable however the patient remains moderately to significantly tender on her abdominal exam. Objective Vital Signs Date Time Temp Pulse Resp B/P (MAP) Pulse Ox O2 Delivery O2 Flow Rate FiO2 06/15/25 18:30 57 06/15/25 18:00 98.3 17 119/72 (88) 100 Room Air 06/15/25 10:10 0.0 06/14/25 07:00 21 Result Diagram: 06/15/25 0603 06/15/25 06 Gen. No acute distress alert and oriented 4 Lungs clear to ascultation bilaterally, no wheezes rales or rhonchi appreciated Heart normal sinus rhythm no murmurs rubs or clicks noted Abdomen soft moderate to significant generalized tenderness bowel sounds are normoactive Lower extremities no clubbing cyanosis, nor edema appreciated bilaterally Problem\Assessment\Plan Acute on chronic abdominal pain -chronic abdominal pain in for many years aggravated for the past few months and worsened today -ct abdomen ruled out cholecystitis and pancreatitis lipase is normal, hCG is negative -differentials includes abdominal pain secondary to constipation versus gastroparesis versus IBS C -as per patient, she is having family history of drug addiction and does not want any opioids -continue pain management with Tylenol, p.r.n. dicyclomine -she needs dedicated evaluation with GI to rule out gastroparesis/IBS C in the outpatient setting -IV fluids NS at 100 cc/hour -06/13 epigastric tenderness has significantly increased today- a KUB is ordered for evaluation of stool burden and a overnight oral contrast prep CT scan is ordered -06/14 the patient can not tolerate the oral contrast as she was vomiting thus plain CT scan was obtained which demonstrates distended gallbladder I have ordered a ultrasound of the gallbladder- started the patient on Protonix IV and the patient is scheduled for an EGD tomorrow with Dr. Landaverde. -06/15 status post EGD- who was some erythema of the antrum of the stomach- continue Protonix advancement of diet Chronic vomitings Likely secondary to cannabis hyperemesis -patient smoke one bowl of cannabis a day -counseled the patient regarding the side effects of the cannabis and recommended to stop -for now started on IV Zofran and IV metoclopramide Chronic constipation -could be secondary to IBS C -follow up on TSH -Dulcolax suppository, Colace and milk of Mag for constipation -if needed start on MiraLax - KUB Anxiety/depression -continue trazodone, Seroquel, hydroxyzine, and Prozac Chiari Type 1 malformation With bilateral upper and lower extremity numbness- MRI of the brain demonstrates the following Chiari more a formation of 5 mm below the foramen magnum MRI of the cervical spine has a following findings: 1. The cerebellar tonsils extend up to 5 mm below the level of the foramen magnum, consistent with reported history of Chiari malformation. No associated syrinx. 2. Minimal disc bulge at C5-C6. No significant spinal canal or neural foraminal stenosis in the cervical spine. MRI of the thoracic spine with the following findings 1. The cerebellar tonsils extend up to 5 mm below the level of the foramen magnum, consistent with reported history of Chiari malformation. No associated syrinx. 2. Minimal disc bulge at C5-C6. No significant spinal canal or neural foraminal stenosis in the cervical spine. MRI of the Lumbar Spine with the following findings: 1. Degenerative disc disease at L5-S1 without significant spinal canal stenosis. 2. Facet hypertrophy at L5-S1 with mild bilateral neural foraminal stenoses. Discussed these findings with tele neurology Dr. Mark Lopez who recommended neurosurgery follow up outpatient Discussed the findings with neurosurgeon and sent contact information to arrange outpatient follow up Sickle-cell trait -H&H-9.3 stable -follow up on peripheral smear - Continue monitor daily CBC Hypokalemia On potassium replacement protocol Anemia- Continue monitor and watch for any signs of sickle cell flare-up Transfuse if hemoglobin drops below seven Metabolic acidosis- Resolved Disposition: Discharge in the a.m. if the patient's symptoms continue to improve Date of Service: Jun 15, 2025 Billing Provider: JESSICA MCCURDY DO Common Visit Codes: [id number] INP/OBS CARE(HIGH) JESSICA MCCURDY DO Jun 15, 2025 20:20
[2025-06-16 04:59] LABS: MEAN PLATELET VOLUME 7.0 FL (7.4-10.4); RED CELL DISTRIBUTION WIDTH 13.4 % (11.5-14.5)
[2025-06-16 05:26] LABS: CREATININE 0.75 MG/DL (0.40-0.90); TOTAL CARBON DIOXIDE 20.3 MMOL/L (24-32); eCRCL 89 ML/MIN; eGFR > 90 ML/MIN
[2025-06-16 06:00] VITALS: BP 110/57; PULSE 59; RESP 16; TEMP 98.9; O2SAT 98
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
[2025-06-16 10:00] VITALS: BP 134/68; PULSE 51; RESP 10; TEMP 98.5; O2SAT 100
--- NOTE | 2025-06-16 10:22 | ELECTROCARDIOGRAPH REPORT ---
[facility] Test Date: 2025-06-16 Test Time: 10:03:48 Pat Name: MAI MOISE Department: ORTHO/NEURO Room: ORTHO [facility] Gender: F Damper Fitter: : 2000 Requested By: JESSICA MCCURDY Order Number: [id number] Reading MD: Dr. ALTHEA Kingston Measurements Intervals [place] Rate: 52 P: 58 OK: 141 QRS: 89 QRSD: 79 T: -57 QT: 548 QTc: 510 Interpretive Statements Sinus bradycardia Borderline T abnormalities, inferior leads Prolonged QT interval Electronically Signed On 06-16-2025 17:33:[address] ALTHEA Kingston Please click the below link to view image of tracing.
[2025-06-16] MEDS ORDERED: ONDA-243 PO (15:28)
[2025-06-16] MEDS ORDERED: PANT40TA54 PO (15:28)
--- NOTE | 2025-06-16 17:47 | PATHOLOGY REPORT ---
[facility] [address] [place] [address] SURGICAL PATHOLOGY REPORT CaseNumber: [id number] Surgeon:Raheem Landaverde M.D. CLINICAL INFORMATION CLINICAL INFORMATION: Epigastric/abdominal pain with vomiting. DIAGNOSIS DIAGNOSIS: STOMACH, ANTRUM; BIOPSY - BENIGN ANTRAL-TYPE GASTRIC MUCOSA. - NEGATIVE FOR INTESTINAL METAPLASIA. - NEGATIVE FOR H. PYLORI. MICROSCOPIC DESCRIPTION MICROSCOPIC DESCRIPTION: Reviewed is one H&E stained slide showing multiple levels of gastric antral- type mucosa. There is no significant increase in acute or chronic inflammation. The glands are appro priately spaced; there is no evidence of fibrosis. There is no evidence of dysplasia, intestinal met aplasia, or Helicobacter pylori. Reviewed is one alcian blue stained slide. There is no intestinal metaplasia identified on the slide . Reviewed is one H. pylori IHC stained slide. There are no H. pylori organisms identified on the slid e. GROSS DESCRIPTION GROSS DESCRIPTION: Received in a container of formalin labeled with the patient's name, number, and " antrum biopsy"are 3 pieces of garcia tissue 0.1-0.3 cm. The specimen is entirely submitted as A1. The t blake at which the specimen was removed was 09. The time at which the specimen was placed in formalin was 09. Electronically signed by: John Cope M.D. 06/16/2025 5:13:00 PM
--- NOTE | 2025-06-16 20:50 | DISCHARGE SUMMARY ---
Discharge Summary Providers to CC ~ Discharge Summary Admission Diagnosis: CANNABIS HYPEREMESIS SYNDROME Hospital Course DATE OF ADMISSION: 06/11/2025 DATE OF DISCHARGE: 06/16/2025 Discharge Diagnosis\\Comment: Acute on chronic abdominal pain likely secondary to gastritis, chronic vomiting likely secondary to cannabis hyperemesis, possible IBS C, anxiety depression, chest pain, lower extremity neuropathy, sickle cell trait Operations\\Procedures: EGD Consultants: Dr. Mark Lopez neurologists, Dr. Landaverde research group director Complications: None Condition on DC: Stable New Medications: Pantoprazole Sodium (Pantoprazole Sodium) 40 Mg Tablet.dr 40 MG PO BKF, #30 TAB.SR Changed Medications: ONDANSETRON ODT 4mg tablet (Ondansetron Odt) 4 Mg Tab.rapdis 4 MG PO Q6H PRN for nausea/vomiting, #24 TAB (Changed from: BID) Continued Medications: Fluoxetine Hcl (Fluoxetine Hcl) 10 Mg Capsule 1 TAB PO DAILY Hydroxyzine HCl (Hydroxyzine HCl) 50 Mg Tablet 1 TAB PO BID Quetiapine Fumarate (Seroquel) 100 Mg Tablet 1 TAB PO HS for 30 Days, #30 TAB 0 Refills Trazodone HCl (Trazodone HCl) 50 Mg Tablet 1 TAB PO HS for 30 Days, #30 TAB 0 Refills Discharge Summary: The patient was admitted by resident physician EMMA De La Paz, under the supervision of SYLVESTER Denton Jr., DO with the following HPI:"25-year-old female with history of Chiari type 1 malformation, anxiety/depression, sickle cell trait limited to the ER with chief complaints of increased abdominal pain for a day. Patient stated that she is having abdominal pain since as a kid, but for the past few months it got aggravated and since today it became unbearable. Describes the pain as someone needling her stomach or knives going into her stomach associated with burning sensation, nonradiating, pain 10/10, associated with nausea and vomitings. For the past three months she is having 2-3 episodes of vomitings a day associated with intake of liquids and solids. She denies hemoptysis. She does have constipation frequency of bowel movement 5-7 days, hard stool not associated with any blood. Patient released her abdominal pain is in fact getting worsened when she is having a bowel movement. She does not relate abdominal pain to any food intake. She smokes pot daily and she does not relate abdominal pain to the cannabis intake She is having irregular menses, for every 2-3 months and will be ongoing for 2-3 weeks. She is on contraceptive depot injection. She had two kids, 1st kid is for years and 2nd kid is 1.5 years She lives with her and [id number]. She had psychiatric history and is using antianxiety and antidepressants. She is currently in transition to another psychiatrist. She does not have a PCP following up with [facility]." The patient continued to have intermittent abdominal pain and chest pain which was negative for a acute coronary syndrome as EKG is were all negative and they demonstrated a sinus bradycardia and serial troponins were negative as well. The patient has a EGD which demonstrated mild erythema at the antrum of the stomach the patient is on Protonix I did do a trial of Carafate which did not seem to help. The patient has lower extremity paresthesias the patient states that she can not feel her feet she does have a Chiari one malformation and I spoke to tele neurology Dr. Mark Lopez who recommended the patient follow up in the outpatient setting with neurosurgery and I did speak with Dr. Julieth diaz who will arrange for the patient to have a follow up appointment in his office I also ordered MRI of the head and of the entire spine to evaluate for syrinx or tethered spine as well or worsening of her Chiari malformation- the MRI resulted as follows: MRI of the brain demonstrates the following Chiari more a formation of 5 mm below the foramen magnum MRI of the cervical spine has a following findings: 1. The cerebellar tonsils extend up to 5 mm below the level of the foramen magnum, consistent with reported history of Chiari malformation. No associated syrinx. 2. Minimal disc bulge at C5-C6. No significant spinal canal or neural foraminal stenosis in the cervical spine. MRI of the thoracic spine with the following findings 1. The cerebellar tonsils extend up to 5 mm below the level of the foramen magnum, consistent with reported history of Chiari malformation. No associated syrinx. 2. Minimal disc bulge at C5-C6. No significant spinal canal or neural foraminal stenosis in the cervical spine. MRI of the Lumbar Spine with the following findings: 1. Degenerative disc disease at L5-S1 without significant spinal canal stenosis. 2. Facet hypertrophy at L5-S1 with mild bilateral neural foraminal stenoses. Patient tolerated a regular diet on the and requested to be discharged The patient is discharged with a prescription for an pantoprazole 40 mg daily And I renewed the patient's ondansetron prescription. Gen. No acute distress alert and oriented 4 Lungs clear to ascultation bilaterally, no wheezes rales or rhonchi appreciated Heart normal sinus rhythm no murmurs rubs or clicks noted Abdomen soft moderate epigastric tenderness bowel sounds are normoactive Lower extremities no clubbing cyanosis, nor edema appreciated bilaterally The patient felt ready to be discharged and was medically cleared to be discharged on 06/16/2025 The patient was seen and evaluated on day of discharge. Time spent on discharge 35 minutes *Problems/Diagnosis: (1) Gastritis Total Time Spent on D/C: > 30 Minutes Date of Service: Jun 16, 2025 Billing Provider: JESSCIA MCCURDY DO Common Visit Codes: 69519-HTH/OBS DISCH DAY >30min JESSICA MCCURDY DO Jun 16, 2025 20:49
[2025-06-17] MEDS ORDERED: pantoprazole 40mg Tablet.DR PO SCH (07:30)
== END 2025-06-16 16:53 | disposition home or self-care (01) | DRG 241 ==
LOC: ER 16:06 → ED HOLD 23:36 → OBSVTOIN 23:36 → EDBEDREQ 06-12 00:52 → SUR 3N 06-12 01:45 → ORTHO 4S 06-13 15:14
PROVIDERS: ADMIT Internal Medicine Critical Care Medicine; ATTEND Family Medicine
PROC: BW211ZZ Computerized Tomography (CT Scan) of Abdomen and Pelvis using Low Osmolar Contrast (ICD-10-PCS; 2025-06-11)
PROC: 0DB78ZX Excision of Stomach, Pylorus, Via Natural or Artificial Opening Endoscopic, Diagnostic (ICD-10-PCS; principal; 2025-06-15 09:08)
DX: K29.70 Gastritis, unspecified, without bleeding (principal); G93.5 Compression of brain; E87.20 Acidosis, unspecified; I95.9 Hypotension, unspecified; K76.0 Fatty (change of) liver, not elsewhere classified; K52.9 Noninfective gastroenteritis and colitis, unspecified; R16.0 Hepatomegaly, not elsewhere classified; F41.9 Anxiety disorder, unspecified; F32.A Depression, unspecified; D57.3 Sickle-cell trait; G62.9 Polyneuropathy, unspecified; R11.2 Nausea with vomiting, unspecified; F12.90 Cannabis use, unspecified, uncomplicated; E87.6 Hypokalemia; D64.9 Anemia, unspecified; K31.89 Other diseases of stomach and duodenum; Z79.899 Other long term (current) drug therapy; Z88.8 Allergy status to other drugs, medicaments and biological substances
CPT/HCPCS: 36415; 43239; 70551; 72141; 72146; 72148; 74018; 74176; 74177; 76700; 76705; 80053; 81003; 82948; 83605; 83690; 84443; 84484; 84703; 85007; 85025; 87040; 87081; 93005; 93306; 96374; 96375; 96376; 99285; A4620; A6258; G0378; J1644; J2270; J2405; J2470; J2704; J2765; J3490; J7030; J7040; J7070; Q0177; Q9963; Q9967

== ENCOUNTER 2025-10-16 08:08 | Emergency (ER) | payer MEDICAID, SELFPAY ==
[~2025-10-16] VITALS: Ht 157.5 cm; Wt 59.7 kg
[~2025-10-16 08:08] MED LIST changes: +FLUO-103 PO; +HYDR50TA65 PO; +PANT40TA54 PO; +QUET-1 PO; +TRAZ-251 PO
[2025-10-16 08:14] VITALS: TEMP 97.2
--- NOTE | 2025-10-16 08:26 | Physician Documentation ---
History of Present Illness ~ Chief Complaint: Back Pain Stated Complaint: SPINE PAIN Time Seen by MD: 08:23 Primary Medical Doctor: [facility] HPI The patient is a 25-year-old female with a history of Chiari type 1 malformation, anxiety/depression, sickle cell trait who presents with back pain that has been going on all my life. Denies saddle anesthesia, urinary dysfunction or lower extremity weakness. Medication Reconciliation Allergies: Coded Allergies: fentanyl (Verified Adverse Reaction, Intermediate, NUMBNESS, 10/16/25) Scheduled Fluoxetine Hcl (Fluoxetine Hcl), 1 TAB PO DAILY, (Reported) Hydroxyzine HCl (Hydroxyzine HCl), 1 TAB PO BID, (Reported) Pantoprazole Sodium (Pantoprazole Sodium), 40 MG PO BKF Quetiapine Fumarate (Seroquel), 1 TAB PO HS, (Reported) Trazodone HCl (Trazodone HCl), 1 TAB PO HS, (Reported) Scheduled PRN ONDANSETRON ODT 4mg tablet (Ondansetron Odt), 4 MG PO Q6H PRN for nausea/vomiting Review of Systems ROS Constitutional: Denies chills, fatigue, fever, weight gain or weight loss. HEENT: Denies hearing loss, sinus pressure or visual changes. Has chronic headaches she attributes to her Chiari 1 malformation. Respiratory: Denies cough, shortness of breath or wheezing. Cardiovascular: Denies chest pain, pain while walking (claudication), edema or palpitations. Gastrointestinal: Denies abdominal pain, blood in stool, constipation, diarrhea, heartburn, loss of appetite, nausea or vomiting. Genitourinary: Denies painful urination (dysuria), excessive amount of urine (polyuria) or urinary frequency. Metabolic/Endocrine: Denies cold intolerance, heat intolerance, excessive thirst (polydipsia) or excessive hunger (polyphagia). Neurological: Denies dizziness, extremity numbness, extremity weakness, headaches, seizures or tremors. Psychiatric: Denies anxiety or depression. Integumentary: Denies breast discharge, breast lump, hives, mole change(s), rash or skin lesion. Musculoskeletal: Chronic back pain Hematologic: Denies easily bleeding, easily bruises, lymphedema or issues with blood clots. Immunologic: Denies food allergies or seasonal allergies. Physical Exam Physical Exam Vital Signs: Temperature: 97.2, Source: Oral, Heart Rate: 75, Respiratory Rate: 14, BP: 111/55, Pulse Oximetry: 99, Weight: 59.700 Oxygen Flow Rate: 0 Physical Exam Physical Exam Vitals and nursing note reviewed. Constitutional: General: Patient is awake, alert, oriented x 4 in no acute distress and well appearing. Speech is clear and lucid. Appearance: Normal appearance. Patient is not ill-appearing, toxic-appearing or diaphoretic. HENT: Head: Normocephalic and atraumatic. Mouth/Throat: Mouth: Mucous membranes are moist. Pharynx: Oropharynx is clear. Eyes: General: No scleral icterus. Extraocular Movements: Extraocular movements intact. Pupils: Pupils are equal, round, and reactive to light. Neck: Supple, no Kernig or Brudzinski sign. Cardiovascular: Rate and Rhythm: Normal rate and regular rhythm. Heart sounds: No murmur heard. Pulmonary: Effort: No respiratory distress. Breath sounds: No wheezing, rhonchi or rales. Abdominal: General: There is no distension. Palpations: There is no fluid wave, hepatomegaly or mass. Tenderness: There is no abdominal tenderness. There is no guarding. Musculoskeletal: General: No swelling or deformity. Skin: Coloration: Skin is not jaundiced. Findings: No erythema or rash. Neurological: Mental Status: Patient is alert. Progress Results/Orders Results/Orders Vital Signs 10/16/25 08:14 Temp 97.2 Pulse 75 Resp 14 B/P (MAP) 111/55 Pulse Ox 99 O2 Flow Rate 0 Medical Decision Making Additional information obtaine: family Findings This 25-year-old female comes in with chronic back pain that she reports has been present all my life. She has no red flags for cauda equina. I have advised her to see her PCP for possible referral. No further workup here is indicated. Differential Dx:Considerations: DJD, Musculoskeletal pain, Strain Departure Disposition: HOME / SELF CARE / HOMELESS Impression: Primary Impression: Chronic back pain Additional Impression: Back problem Condition: Stable Additional Instructions: You may require referral for chronic back problems. If advised, this could be arranged by your PCP. It is important to see your doctor or primary care provider. Emergency care may be incomplete without proper follow-up. Symptoms sometimes change or new symptoms might arise after you leave the emergency department. It is important that you call your doctor if you become worse in any way, or return to the emergency department. You are strongly urged to follow-up with your physician to assure complete and thorough care. Please call your doctor's office today, and informed them that you were seen in the emergency department, and that you need to be seen immediately for close follow-up. If you do not have a primary care doctor we encourage you to proactively seek a local physician for close follow-up. Consider local clinics, [facility], or [place] [facility] [place] Prior to discharge we spoke at length concerning symptoms that would merit reevaluation, but please return to the emergency department for any symptoms that are concerning to you, and we will be happy to continue your evaluation and treatment. Please note you can always return to the emergency department if you are having difficulty coordinating close follow-up. If medications were prescribed, you should fill them at your local pharmacy immediately and take only as prescribed. Bring your new medications to your doctors follow-up visit to discuss any changes that would be necessary. Please check [facility] for any results you did not receive in the Emergency Department: often we are unable to get all your tests back before you leave, and these tests need to be reviewed by your PCP and yourself. You can also call Medical Records if you are unable to access the internet to see [employer]. Return to the emergency department immediately for worsening chest pain, difficulty breathing, sweating, or other concerning emergent symptoms. Referrals: NO PRIMARY CARE PROVIDER (PCP) Signature Scribe Signature: . Attestation: LIANNA MONTEMAYOR MD Oct 16, 2025 08:26
[2025-10-16 08:49] VITALS: BP 111/54; PULSE 65; RESP 16; O2SAT 100
== END 2025-10-16 08:52 | disposition home or self-care (01) ==
LOC: ER 08:10
DX: G89.29 Other chronic pain (principal); M54.9 Dorsalgia, unspecified; F41.9 Anxiety disorder, unspecified; F32.A Depression, unspecified; Z88.5 Allergy status to narcotic agent; Z79.899 Other long term (current) drug therapy
CPT/HCPCS: 99282